=== PATIENT | female | born 1980 | race African-American/Black ===

== ENCOUNTER 2016-06-20 10:00 | Inpatient (IN) | payer MEDICAID ==
[~2016-06-20 10:00] MED LIST: COMPAZINE10 M PO; NORCO 5/325 TAB1 TAB PO; PERCOCET 5/3251 TAB PO; PRENA1 CHEW TA1.4 M1 PO; PRENATAL1 EACH PO; PROCARDIA XL60 M1 PO
[2016-06-20 10:53] LABS: URINE PRT/CR RATIO 0.49 Ratio (0.0-0.20); URINE TOTAL PROTEIN-RANDOM 22.4 mg/dl (<11.8)
[2016-06-20 11:24] LABS: ALT/SGPT 14 U/L (12-78); AST/SGOT 14 U/L (10-40); CREATININE 0.57 mg/dl (0.50-1.10); eGFR VALUE FOR BLACK >90 mL/Min
[2016-06-20 12:50] LABS: BASO % 0.2 % (0-2); EOS % 1.5 % (0-7); EOSINOPHIL ABSOLUTE COUNT 0.1 tho/cmm (0.0-0.7); HGB-HEMOGLOBIN 11.2 gm/dl (12.0-15.5); IMMATURE GRANULOCYTES ABSOLUTE 0.02 tho/cmm (0-0.03); IMMATURE GRANULOCYTES PERCENT 0.2 % (0-0.3); LYMPH % 20.6 % (20-45); LYMPH ABSOLUTE COUNT 1.9 tho/cmm (0.8-4.5); MCH (MEAN CORPUSCULAR HGB) 31.2 pg (28.0-32.0); MCHC MEAN CORPUSCULAR HGB CONC 33.9 % (32.0-36.0); MCV (MEAN CELL VOLUME) 91.9 fl (82.0-96.0); MEAN PLATELET VOLUME 11.2 cmc (9.4-12.4); MONO % 10.4 % (0-12); NEUTROPHIL ABSOLUTE COUNT 6.2 tho/cmm (1.6-8.0); NEUTROPHIL-AUTOMATED 6.2 tho/cmm (1.6-8.0); NEUTROPHILS % 67.1 % (40-80); PLATELET COUNT 143 tho/cmm (150-450); RED BLOOD COUNT 3.59 mil/cmm (4.00-5.20); WHITE BLOOD COUNT 9.2 tho/cmm (4.0-10.0)
[2016-06-21 07:08] LABS: BASO % 0.2 % (0-2); EOS % 0.6 % (0-7); EOSINOPHIL ABSOLUTE COUNT 0.1 tho/cmm (0.0-0.7); HCT-HEMATOCRIT 31.6 % (34.0-49.0); HGB-HEMOGLOBIN 10.6 gm/dl (12.0-15.5); IMMATURE GRANULOCYTES ABSOLUTE 0.02 tho/cmm (0-0.03); IMMATURE GRANULOCYTES PERCENT 0.2 % (0-0.3); LYMPH % 19.2 % (20-45); LYMPH ABSOLUTE COUNT 1.6 tho/cmm (0.8-4.5); MCH (MEAN CORPUSCULAR HGB) 30.7 pg (28.0-32.0); MCHC MEAN CORPUSCULAR HGB CONC 33.5 % (32.0-36.0); MCV (MEAN CELL VOLUME) 91.6 fl (82.0-96.0); MEAN PLATELET VOLUME 10.8 cmc (9.4-12.4); MONO % 9.3 % (0-12); MONOCYTE ABSOLUTE COUNT 0.8 tho/cmm (0.0-1.2); NEUTROPHIL ABSOLUTE COUNT 5.8 tho/cmm (1.6-8.0); NEUTROPHIL-AUTOMATED 5.8 tho/cmm (1.6-8.0); NEUTROPHILS % 70.5 % (40-80); PLATELET COUNT 133 tho/cmm (150-450); RED BLOOD COUNT 3.45 mil/cmm (4.00-5.20); WHITE BLOOD COUNT 8.2 tho/cmm (4.0-10.0)
--- NOTE | 2016-06-23 16:10 | NUR ---
DR. SPAULDING'S NOTIFIED OF MARE CAMPOVERDE'S REQUEST. HER RECOMMENDATIONS WOULD BE TO START WITH BPP AND CONTINUOUS MONITORING.
[2016-06-24] MEDS ORDERED: IBUPROFEN800 M1 PO (09:35)
[2016-06-24] MEDS ORDERED: NORCO 5-325 TA1 EACH PO (09:36)
== END 2016-06-24 12:40 | DRG 766 ==
LOC: LDR 10:00 → OBGD 19:55
PROVIDERS: Obstetrics & Gynecology Maternal & Fetal Medicine; Specialist; ADMIT Advanced Practice Midwife
PROC: 10D00Z1 Extraction of Products of Conception, Low, Open Approach (ICD-10-PCS; principal; 2016-06-20)
DX: O16.3 Unspecified maternal hypertension, third trimester (principal); O34.219 Maternal care for unspecified type scar from previous cesarean delivery; Z37.0 Single live birth; Z3A.37 37 weeks gestation of pregnancy
CPT/HCPCS: J0690; J2590; J7121